=== PATIENT | male | born 1980 | race Caucasian/White ===

== ENCOUNTER 2017-03-12 22:48 | Emergency (ER) | payer MEDICAID ==
[~2017-03-12] VITALS: Ht 175.3 cm; Wt 68.0 kg
[2017-03-13] MEDS ORDERED: KETOROLAC 60MG/2ML VIAL IM ONE (01:00)
[2017-03-13] MEDS ORDERED: IBUPROFEN 800MG TABLET PO ONE (01:15)
[2017-03-13 01:28] VITALS: BP 137/84
== END 2017-03-13 02:36 | disposition home or self-care (01) ==
LOC: ER 22:49
DX: S00.03XA Contusion of scalp, initial encounter (principal); M25.511 Pain in right shoulder; Z88.0 Allergy status to penicillin; W22.01XA Walked into wall, initial encounter; Y93.89 Activity, other specified; Y99.9 Unspecified external cause status; Y92.89 Other specified places as the place of occurrence of the external cause
CPT/HCPCS: 71020; 99284